=== PATIENT | female | born 2000 | race Caucasian/White ===

== ENCOUNTER 2024-05-18 17:40 | Emergency (ER) | payer BC, SELFPAY ==
[2024-05-18] VITALS (8 sets, daily range): BP systolic 105–113; BP diastolic 79–89; PULSE 74–89; RESP 12–25; TEMP 36.8; O2SAT 98–100
--- NOTE | ~2024-05-18 | XR_ITS ---
EXAMINATION: XR chest 1V portable 05/18/2024 17:55 INDICATION: Chest palpitations PROCEDURE: AP portable chest COMPARISON: No prior studies for comparison. FINDINGS: The lungs are clear. The cardiomediastinal silhouette is within normal limits. There are no pleural effusions. There is no pneumothorax suspected. IMPRESSION: 1: NO ACUTE CARDIOPULMONARY DISEASE. Reviewed, dictated and finalized at location B.
--- NOTE | 2024-05-18 17:43 | ECG_ITS ---
Test Date: 2024-05-18 17:53:01 Measurements Intervals [place] Rate: 71 P: 69 W[place]: 125 QRS: 74 QRSD: 97 T: 52 QT: 388 QTc: 422 Interpretive Statements SINUS RHYTHM WITH SINUS ARRHYTHMIA POSSIBLE RIGHT VENTRICULAR CONDUCTION DELAY [RSR (QR) IN V1/V2] BORDERLINE ECG No previous ECG available for comparison Electronically Signed On 05-19-2024 10:26:30 CDT by Evan Diaz M.D.
--- NOTE | 2024-05-18 18:03 | ED.ARRPALP ---
HPI - Arrhythmia/Palpitations General Chief Complaint: Arrhythmia/Palpitations Stated Complaint: PALPITATIONS Time Seen by Provider: 05/18/24 17:43 Source: patient and family Mode of arrival: ambulatory Limitations: no limitations History of Present Illness HPI narrative: 23 YEARS OLD WHITE FEMALE CAME TO THE ED WITH HER MOM BY PRIVATE CAR COMPLAINING OF PALPITATION STARTED YESTERDAY. HAS BEEN OFF AND ON SINCE USUALLY RUNS FOR 2 SECONDS THEN RESOLVES. PATIENT NOTICED PALPITATION MORE AT WORK, STANDING AND WALKING. 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 CURRENTLY PATIENT IS ASYMPTOMATIC SHE DENIES ANY FEVER, CHILLS, NAUSEA, VOMITING, CHEST PAIN, SHORTNESS OF BREATH, HEADACHE OR DIZZINESS. HISTORY OF WPW, AND CARDIAC ABLATION AT 16 YEARS OLD. PATIENT HAD SYNCOPE AT THAT TIME. Related Data Allergies Allergy/AdvReac Type Severity Reaction Status Date / Time NKDA Allergy Unknown Unknown Uncoded 05/18/24 17:49 Review of Systems Review of Systems: All systems reviewed & are unremarkable except as noted in HPI and below Exam Narrative: GENERAL APPEARANCE: WELL-DEVELOPED, WELL-NOURISHED SKIN: NORMAL COLOR HEAD: NORMOCEPHALIC, NONTRAUMATIC EYES: CLEAR CONJUNCTIVA ENT: OROPHARYNX NORMAL, EARS NORMAL, NOSE NORMAL NECK: SUPPLE, NONTENDER CHEST AND RESPIRATORY: AIRWAY PATENT, NO RESPIRATORY DISTRESS, NO ACCESSORY MUSCLE USE HEART: REGULAR RATE/RHYTHM ABDOMEN: SOFT, NONTENDER, NO ORGANOMEGALY, QUIET BOWEL SOUNDS VASCULAR: NORMAL PERIPHERAL PULSES, NORMAL CAPILLARY REFILL. 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 IS NORMAL TESTED, NO GROSS MOTOR DEFICIT Course Vital Signs Vital signs: Vital Signs Temperature 36.8 C 05/18/24 17:40 Pulse Rate 82 05/18/24 17:40 Respiratory Rate 20 05/18/24 17:40 Blood Pressure 113/84 05/18/24 17:40 Pulse Oximetry 100 05/18/24 17:40 Oxygen Delivery Room Air 05/18/24 17:40 Temperature 36.8 C 05/18/24 17:40 Pulse Rate 81 05/18/24 18:45 Respiratory Rate 22 H 05/18/24 18:45 Blood Pressure 106/89 05/18/24 18:45 Pulse Oximetry 100 05/18/24 18:45 Oxygen Delivery Room Air 05/18/24 17:40 MDM - Arrhythmia/Palpitations MDM Narrative Medical decision making narrative: PATIENT CAME WITH PALPITATION VITAL SIGNS ARE STABLE PHYSICAL EXAMINATION IS UNREMARKABLE DIFFERENTIAL DIAGNOSIS INCLUDE ANXIETY, STRESS, EXTRA CAFFEINE, ELECTROLYTE IMBALANCE, DRUGS, BLOOD WORKUP SHOWED NO ACUTE ABNORMALITIES EKG ON ARRIVAL SHOWED NORMAL SINUS RHYTHM, NO WPW, CHEST X-RAY SHOWED NO ACUTE ABNORMALITIES. PATIENT WAS NOTIFIED THAT IF HER SYMPTOMS CONTINUE IN THE NEXT FEW DAYS TO CONTACT HER FAMILY PHYSICIAN IMMEDIATELY FOR POSSIBLE HOLTER MONITOR PLACEMENT. Differential Diagnosis Differential diagnosis: Likely palpitations, anxiety, sinus tachycardia and WPW Medical Records Attestation: I reviewed the patient's medical records. Lab Data Attestation: I reviewed the patient's lab results. 05/18/24 18:09 05/18/24 18:09 Labs: Lab Results 05/18/24 05/18/24 Range/Units 18:09 18:18 WBC 5.1 (4.8-10.8) K/mm3 RBC 4.43 (4.20-5.40) M/mm3 Hgb 12.7 (12.0-15.0) g/dL Hct 39.0 (35.0-49.0) % MCV 88.0 (78.0-102.0) fL MCH 28.7 (27.0-31.0) pg MCHC 32.6 (32-36) g/dL RDW 12.5 (11.6-14.4) % Plt Count 245 (150-420) K/mm3 MPV 10.8 (9.2-11.8) fl Immature Gran % (Auto) 0.2 H (0.0-0.0) % Neut % (Auto) 39.7 L (50.0-70.0) % Lymph % (Auto) 47.8 H (18.0-42.0) % [place] % (Auto) 9.0 (2.0-11.0) % Eos % (Auto) 2.5 (1.0-6.
[2024-05-18 18:11] LABS: Basophils Absolute Auto 0.04 K/mm3 (0.00-0.10); Basophils Percent Auto 0.8 % (0.0-1.0); Eosinophils Absolute Auto 0.13 K/mm3 (0.02-0.50); Eosinophils Percent Auto 2.5 % (1.0-6.0); Hemoglobin 12.7 g/dL (12.0-15.0); Immature Granulocyte Absolute 0.01 K/mm3 (0.00-0.00); Immature Granulocyte Percent A 0.2 % (0.0-0.0); Lymphocytes Absolute Auto 2.45 K/mm3 (1.10-4.50); Lymphocytes Percent Auto 47.8 % (18.0-42.0); Mean Corpuscular HGB Conc 32.6 g/dL (32-36); Mean Corpuscular Hemoglobin 28.7 pg (27.0-31.0); Mean Platelet Volume 10.8 fl (9.2-11.8); Monocytes Absolute Auto 0.46 K/mm3 (0.10-0.90); Neutrophils Absolute Auto 2.04 K/mm3 (1.70-7.20); Neutrophils Percent Auto 39.7 % (50.0-70.0); Platelet Count Result 245 K/mm3 (150-420); Red Blood Count 4.43 M/mm3 (4.20-5.40); Red Cell Distribution Width 12.5 % (11.6-14.4); White Blood Count 5.1 K/mm3 (4.8-10.8)
[2024-05-18 18:29] LABS: SPREG INTERNAL CONTROL Positive; Serum Qual hCG Negative
[2024-05-18 18:35] LABS: Amphetamine Screen Urine Negative (Negative); Barbiturate Screen Urine Negative (Negative); Benzodiazepines Screen Urine Negative (Negative); Cannabinoid Screen Urine Negative (Negative); Cocaine Screen Urine Negative (Negative); Methadone Screen Urine Negative (Negative); Opiate Screen Urine Negative (Negative); Phencyclidine Screen Urine Negative (Negative)
[2024-05-18 18:35] LABS: Alanine Aminotransferase 19 U/L (14-59); Alkaline Phosphatase 74 U/L (46-116); Anion Gap 6 mmol/L (4-12); Aspartate Amino Transferase 13 U/L (15-37); Bilirubin,Total 0.5 mg/dL (0.00-1.00); Blood Urea Nitrogen 17 mg/dL (7-18); Calcium 9.2 mg/dL (8.5-10.1); Carbon Dioxide 30 mmol/L (21-32); Chloride 100 mmol/L (98-108); Estimated Glomerular Filt Rate > 60; Glucose 87 mg/dL (70-99); Osmolality Calculated 282 mOsm/kg (285-295); Potassium 3.4 mmol/L (3.5-5.1); Sodium 136 mmol/L (136-145); Thyroid Stimulating Hormone 2.48 uIU/mL (0.36-3.74); Total Protein 7.5 g/dL (6.4-8.2)
[2024-05-18 18:37] LABS: Troponin I 4.2 ng/L (0.00-60.4)
--- NOTE | 2024-05-18 18:49 | PC.NURSE ---
PT IS SITTING ON STRETCHER TALKING WITH MOTHER. NAD NOTED. PT DENIES ANY NEEDS OR COMPLAINTS. PT IS AWAITING ON ERP DECISION. VSS. NAD NOTED. WILL CONTINUE TO MONITOR.
[2024-05-18] MEDS: POTASSIUM CHLORIDE 20 MEQ ER TABLET 40 MEQ PO (19:01)
== END 2024-05-18 19:05 | disposition home or self-care (01) ==
LOC: CHSED 18:34
PROVIDERS: Emergency Provider Emergency Medicine; PCP Physician Assistant
DX: R00.2 Palpitations (principal)
CPT/HCPCS: 36415; 71045; 80053; 80307; 84443; 84484; 84703; 85025; 93005; 99284; A9270

== ENCOUNTER 2024-06-29 10:22 | Outpatient (CLI) | payer BC, SELFPAY ==
--- NOTE | ~2024-06-29 | XR_ITS ---
EXAMINATION: XR lumbar spine 2-3V DATE: 06/29/2024 10:44 INDICATION: 3 months of back pain TECHNIQUE: Anteroposterior and lateral views of the lumbar spine, and cone-down lateral view of the l umbosacral junction were obtained. COMPARISON: None. FINDINGS: Transitional L1 segment with right-sided hypoplastic riblets/unfused apophyseal center of the transve rse process. Alignment is normal. Vertebral body and disc heights are normal. Mild lower lumbar facet osteoarthritis. Sacral arches are intact. Mild left sacroiliac osteoarthritis. IMPRESSION: 1. 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 Reviewed, dictated and finalized at location A. DING ESTIMATOR
--- NOTE | ~2024-06-29 | XR_ITS ---
EXAMINATION: XR hip RT min 2V DATE: 06/29/2024 10:44 INDICATION: Right hip pain TECHNIQUE: Anteroposterior and frog-leg lateral views of the right hip were obtained. COMPARISON: None. FINDINGS: Bone alignment is normal. No fracture or suspected osteonecrosis. Right hip and sacroiliac joint spac es are normal. Soft tissues are unremarkable. IMPRESSION: 1. Negative right and hip radiographs. Reviewed, dictated and finalized at location A. ERER
== END 2024-06-29 10:23 | disposition home or self-care (01) ==
PROVIDERS: PCP Physician Assistant; Visit Provider Physician Assistant
DX: M54.50 Low back pain, unspecified (principal); M25.551 Pain in right hip; M85.88 Other specified disorders of bone density and structure, other site
CPT/HCPCS: 72100; 73502